=== PATIENT | female | born 1935 | race Caucasian/White ===

== ENCOUNTER 2017-10-01 14:11 | Inpatient (IN) | payer MEDICARE, OTHER ==
[2017-10-01 14:52] LABS: ANION GAP 13.7
[2017-10-01] MEDS ORDERED: Ondansetron 4 MG/2 ML SDV IV ONE (15:15)
[2017-10-01] MEDS ORDERED: Sodium Chloride 0.9% 1,000 ML IV ONE (15:15)
--- NOTE | 2017-10-01 15:22 | EDM.PDOC ---
ED HPI GENERAL MEDICAL PROBLEM - General Chief Complaint: Gastrointestinal Problem Stated Complaint: NAUSEA Time Seen by Provider: 10/01/17 15:05 Source of Information: Reports: Patient History Limitations: Reports: No Limitations - History of Present Illness INITIAL COMMENTS - FREE TEXT/NARRATIVE: This 82 yo female patient reports to the ED with nausea and a reduced appetite over the past 3 days. The patient reports she has had a history of frequent UTI' s this summer with previous treatments including Bactrim and Macrobid. The patient reports she did eat some crackers yesterday and today, but has a difficult time getting them down. The patient reports she just generally does not feel well at this time. Onset Date: 09/28/17 Duration: Constant Location: Reports: Generalized Quality: Reports: Other Severity: Moderate Improves with: Reports: None Worsens with: Reports: None Associated Symptoms: Reports: Nausea/Vomiting, Weakness - Related Data Allergies Allergy/AdvReac Type Severity Reaction Status Date / Time ciprofloxacin Allergy Intermediate Muscle Verified 10/01/17 14:16 Aches Penicillins Allergy Intermediate Rash Verified 10/01/17 14:16 atorvastatin [From Lipitor] Allergy Muscle Verified 10/01/17 14:16 Aches erythromycin base Allergy Other Verified 10/01/17 14:16 [Erythromycin Base] levofloxacin [From Levaquin] Allergy Indigestion Verified 10/01/17 14:16 dexasporin Allergy Other Uncoded 10/01/17 14:16 Home Meds: Home Meds Acetaminophen [Tylenol Extra Strength] 1,000 mg PO Q8H PRN 12/28/13 [History] Calcium Carbonate [Calcium] 600 mg PO DAILY 12/28/13 [History] Cholecalciferol (Vitamin D3) [Vitamin D] 1,000 unit PO DAILY 12/28/13 [History] Ipratropium [Atrovent 0.03% Nasal [place]] 1 spray NASBOTH DAILY 12/28/13 [History ] Metoprolol Succinate [Toprol XL] 50 mg PO DAILY 12/28/13 [History] Amiodarone [Cordarone] 200 mg PO DAILY 11/20/15 [History] Apixaban [Eliquis] 2.5 mg PO BID 11/20/15 [History] Fluticasone/Salmeterol [Advair Diskus 500-50] 1 puff INH BID 10/10/16 [History] azaTHIOprine [Imuran] 50 mg PO ASDIRECTED 11/20/15 [History] Alendronate Sodium 70 mg PO ASDIRECTED 10/01/17 [History] Levothyroxine 25 mcg PO ACBREAKFAST 10/01/17 [History] Nitrofurantoin [place]/Macrocryst [Nitrofurantoin [place]-MCR] 100 mg PO BID 10/01/17 [History] Pitavastatin [Livalo] 2 mg PO DAILY 10/01/17 [History] Trospium Chloride 20 mg PO DAILY 10/01/17 [History] buPROPion [Wellbutrin SR] 100 mg PO DAILY 10/01/17 [History] cycloSPORINE [Restasis] 2 drop EYEBOTH ASDIRECTED PRN 10/01/17 [History] Past Medical History HEENT History: Reports: Hard of Hearing, Impaired Vision, Other (See Below) Other HEENT History: wears glasses, wears aides Cardiovascular History: Reports: Afib, High Cholesterol Respiratory History: Reports: None Gastrointestinal History: Reports: Diverticulosis Genitourinary History: Reports: Urinary Incontinence, UTI, Recurrent, Other ( See Below) Other Genitourinary History: 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 OF THE 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: Musculoskeletal History: Reports: Fibromyalgia Other Musculoskeletal History: TROCHANTERIC BURSITIS Neurological History: Reports: Other (See Below) Other Neuro History: INSOMNIA Psychiatric History: Reports: Depression Endocrine/Metabolic History: Reports: Hypothyroidism Other Endocrine/Metabolic History: ELEVATED TSH Hematologic History: Reports: Other (See Below) Other Hematologic History: vasculitis Immunologic History: Reports: None Other Immunologic History: VASCULITIS Oncologic (Cancer) History: Reports: None Dermatologic History: Reports: Other (See Below) Other Dermatologic History: ACTINIC DERMATITIS; 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 - Infectious Disease History Infectious Disease History: Reports: Measles, Pertussis (Whooping Cough), Scarlet Fever Other Infectious Disease History: UNCERTAIN OF WHAT SHE MAY HAVE HAD DURING CHILDHOOD - Past Surgical History Head Surgeries/Procedures: Reports: None HEENT Surgical History: Reports: Cataract Surgery Respiratory Surgical History: Reports: None GI Surgical History: Reports: Appendectomy, Colonoscopy Female Surgical History: Reports: D&C, Tubal Ligation Oncologic Surgical History: Reports: None Social & Family History - Tobacco Use Smoking Status *Q: Never Smoker Second Hand Smoke Exposure: No - Caffeine Use Caffeine Use: Reports: Coffee, Tea Other Caffeine Use: OCCASIONAL - Recreational Drug Use Recreational Drug Use: No ED ROS GENERAL - Review of Systems Review Of Systems: ROS reveals no pertinent complaints other than HPI. ED EXAM, GI/ABD - Physical Exam Exam: See Below Exam Limited By: No Limitations General Appearance: Alert, WD/WN, Mild Distress Eyes: Bilateral: Normal Appearance, EOMI Ears: Normal External Exam, Normal Canal, Hearing Grossly Normal, Normal TMs Nose: Normal Inspection, Normal Mucosa, No Blood Throat/Mouth: Normal Inspection, Normal Lips, Normal Teeth, Normal Gums, Normal Oropharynx, Normal Voice, No Airway Compromise Head: Atraumatic, Normocephalic Neck: Normal Inspection, Supple, Non-Tender, Full Range of Motion Cardiovascular: Normal Peripheral Pulses, Regular Rate, Rhythm, No Edema, No Gallop, No JVD, No Murmur, No Rub GI/Abdominal Exam: Normal Bowel Sounds, Soft, Non-Tender, No Organomegaly, No Distention, No Abnormal Bruit, No Mass, Pelvis Stable (Female) Exam: Deferred Rectal (Female) Exam: Deferred Back Exam: Normal Inspection, Full Range of Motion, NT Extremities: Normal Inspection, Normal Range of Motion, Non-Tender, Normal Capillary Refill, No Pedal Edema Neurological: Alert, Oriented, CN II-XII Intact, Normal Cognition Psychiatric: Normal Affect, Normal Mood Skin Exam: Warm, Dry, Intact, Normal Color, No Rash Lymphatic: No Adenopathy Course - Vital Signs Last Recorded V/S: Last Vital Signs Temp 35.8 C 10/01/17 16:18 Pulse 60 10/01/17 16:18 Resp 15 10/01/17 16:18 BP 133/59 L 10/01/17 16:18 Pulse Ox 98 10/01/17 16:18 Orthostatic Blood Pressure [ 99/63 Standing] Orthostatic Blood Pressure [ 114/68 Sitting] Orthostatic Blood Pressure [ 132/70 Supine] - Orders/Labs/Meds Orders: Active Orders 24 hr Category Date Time Status CULTURE URINE [RM] Stat Lab 10/01/17 15:51 Ordered UA W/MICROSCOPIC [URIN] Stat Lab 10/01/17 14:45 Ordered Labs: Laboratory Tests 10/01/17 10/01/17 10/01/17 Range/Units 14:25 14:25 14:45 WBC 5.8 (5.0-10.0) 10^3/uL RBC 4.38 (4.2-5.4) 10^6/uL Hgb 14.1 (12.0-16.0) g/dL Hct 40.6 (37.0-47.0) % MCV 92.7 (80-100) fL MCH 32.2 (27.0-34.0) pg MCHC 34.7 (33.0-35.0) g/dL Plt Count 273 (150-450) 10^3/uL Neut % (Auto) 67.3 (42.2-75.2) % Lymph % (Auto) 17.6 L (20.5-50.1) % [place] % (Auto) 14.6 H (2-8) % Eos % (Auto) 0.2 L (1.0-3.0) % Baso % (Auto) 0.3 (0.0-1.0) % Add Manual Diff Yes Neutrophils % (Manual) 71 (42-75) % Band Neutrophils % 1 % Lymphocytes % (Manual) 16 L (20-50) % Monocytes % (Manual) 12 H (2-8) % Sodium 129 L (135-145) mmol/L Potassium 4.7 (3.6-5.0) mmol/L Chloride 97 L (101-111) mmol/L Carbon Dioxide 23.0 (21.0-31.0) mmol/L Anion Gap 13.7 BUN 18 (7-18) mg/dL Creatinine 1.5 H (0.6-1.3) mg/dL Est Cr Clr Drug Dosing 22.47 mL/min Estimated GFR (MDRD) 33 BUN/Creatinine Ratio 12.00 Glucose 94 (74-105) mg/dL Calcium 9.5 (8.4-10.2) mg/dl Total Bilirubin 1.0 (0.2-1.0) mg/dL AST 41 (10-42) IU/L ALT 36 (10-60) IU/L Alkaline Phosphatase 29 L (42-121) IU/L Total Protein 7.0 (6.7-8.2) g/dl Albumin 4.1 (3.2-5.5) g/dl Globulin 2.9 Albumin/Globulin Ratio 1.41 Urine Color Yellow (YELLOW) Urine Appearance Cloudy (CLEAR) Urine pH 7.5 (5.0-9.0) Ur Specific [place] 1.015 (1.005-1.030) Urine Protein Trace H (NEGATIVE) Urine Glucose (UA) Negative (NEGATIVE) Urine Ketones 40 H (NEGATIVE) Urine Occult Blood Negative (NEGATIVE) Urine Nitrite Negative (NEGATIVE) Urine Bilirubin Negative (NEGATIVE) Urine Urobilinogen 0.2 (0.2-1.0) mg/dL Ur Leukocyte Esterase Small H (NEGATIVE) Urine RBC 0-5 /HPF Urine WBC 5-10 H (0-5/HPF) /HPF Ur Epithelial Cells Few /HPF Amorphous Sediment Many H (0/HPF) /HPF Urine Bacteria Rare (0-FEW/HPF) /HPF Meds: Medications Discontinued Medications Generic Name Dose Route Start Last Admin Trade Name Freq PRN Reason Stop Dose Admin Sodium Chloride 1,000 mls @ 999 mls/hr 10/01/17 15:15 10/01/17 15:31 Normal Saline IV 10/01/17 16:15 999 mls/hr .BOLUS ONE Administration Ondansetron HCl 4 mg 10/01/17 15:15 10/01/17 15:33 Zofran IV 10/01/17 15:16 4 mg ONETIME ONE Administration Departure - Departure Time of Disposition: 16:51 Disposition: Admitted As Inpatient 65 Condition: Fair Clinical Impression: Weakness UTI (urinary tract infection) Qualifiers: Urinary tract infection type: site unspecified Hematuria presence: without hematuria Qualified Code(s): N39.0 - Urinary tract infection, site not specified - Discharge Information *PRESCRIPTION DRUG MONITORING PROGRAM REVIEWED*: Not Applicable *COPY OF PRESCRIPTION DRUG MONITORING REPORT IN PATIENT YESSICA: Not Applicable Care Plan Goals: Discussed the examination, lab and history results with Dr. Masterson. Dr. Masterson accepted the patient for observation and further evaluation/management at [facility]. - My Orders Last 24 Hours: My Active Orders 10/01/17 14:45 UA W/MICROSCOPIC [URIN] Stat 10/01/17 15:51 CULTURE URINE [RM] Stat - Assessment/Plan Last 24 Hours: My Active Orders 10/01/17 14:45 UA W/MICROSCOPIC [URIN] Stat 10/01/17 15:51 CULTURE URINE [RM] Stat
[2017-10-01] MEDS ORDERED: Ondansetron 4 MG/2 ML SDV IVPUSH PRN ×2 (17:10→17:36)
[2017-10-01] MEDS ORDERED: Acetaminophen 325 MG Tab PO PRN ×2 (17:10→17:36)
[2017-10-01] MEDS ORDERED: cefTRIAXone 1 GM Vial IVPUSH SCH (17:15)
[2017-10-01] MEDS ORDERED: Acetaminophen 500 MG Tab PO PRN ×2 (17:15→17:36)
[2017-10-01] MEDS ORDERED: Sodium Chloride 0.9% 1,000 ML IV SCH (17:15)
--- NOTE | 2017-10-01 17:24 | PCM.HP ---
H&P History of Present Illness - General Date of Service: 10/01/17 Admit Problem/Dx: Admission Diagnosis/Problem Admission Diagnosis/Problem Acute renal failure syndrome Source of Information: Patient - History of Present Illness Initial Comments - Free Text/Narative: The patient is an 82 year old female with medical history of hypothyroidism, chronic atrial fibrillation, hypertension, and chronic anticoagulation. The patient began to experience symptoms of urinary tract infection about 5 days ago. She was seen by her primary carepractitioner and given a prescription for nitrofurantoin. Despite using that medication she continues to have frequency or micturition generalized body malaise and weakness. The patient had urine cultures which came back suggesting that it was resistant to nitrofurantoin. Patient was started on Bactrim. Over the past 3 days has symptoms has worsened. She has been experiencing nausea. She vomited yesterday evening. Her appetite has been poor and she has not been eating well. Has not had any documented fever but experiences intermittent chills. Denies having chest pain or shortness of breath. Indicates that she has generalized body aches and feels extremely weak. - Related Data Allergies/Adverse Reactions: Allergies Allergy/AdvReac Type Severity Reaction Status Date / Time ciprofloxacin Allergy Intermediate Muscle Verified 10/01/17 14:16 Aches Penicillins Allergy Intermediate Rash Verified 10/01/17 14:16 atorvastatin [From Lipitor] Allergy Muscle Verified 10/01/17 14:16 Aches erythromycin base Allergy Other Verified 10/01/17 14:16 [Erythromycin Base] levofloxacin [From Levaquin] Allergy Indigestion Verified 10/01/17 14:16 dexasporin Allergy Other Uncoded 10/01/17 14:16 Home Medications: Home Meds Acetaminophen [Tylenol Extra Strength] 1,000 mg PO Q8H PRN 12/28/13 [History] Calcium Carbonate [Calcium] 600 mg PO DAILY 12/28/13 [History] Cholecalciferol (Vitamin D3) [Vitamin D] 1,000 unit PO DAILY 12/28/13 [History] Ipratropium [Atrovent 0.03% Nasal [place]] 1 spray NASBOTH DAILY 12/28/13 [History ] Metoprolol Succinate [Toprol XL] 50 mg PO DAILY 12/28/13 [History] Amiodarone [Cordarone] 200 mg PO DAILY 11/20/15 [History] Apixaban [Eliquis] 2.5 mg PO BID 11/20/15 [History] Fluticasone/Salmeterol [Advair Diskus 500-50] 1 puff INH BID 11/20/15 [History] azaTHIOprine [Imuran] 50 mg PO ASDIRECTED 11/20/15 [History] Alendronate Sodium 70 mg PO ASDIRECTED 10/01/17 [History] Levothyroxine 25 mcg PO ACBREAKFAST 10/01/17 [History] Nitrofurantoin [place]/Macrocryst [Nitrofurantoin [place]-MCR] 100 mg PO BID 10/01/17 [History] Pitavastatin [Livalo] 2 mg PO DAILY 10/01/17 [History] Trospium Chloride 20 mg PO DAILY 10/01/17 [History] buPROPion [Wellbutrin SR] 100 mg PO DAILY 10/01/17 [History] cycloSPORINE [Restasis] 2 drop EYEBOTH ASDIRECTED PRN 10/01/17 [History] Past Medical History HEENT History: Reports: Hard of Hearing, Impaired Vision, Other (See Below) Other HEENT History: wears glasses, wears aides Cardiovascular History: Reports: Afib, High Cholesterol Respiratory History: Reports: None Gastrointestinal History: Reports: Diverticulosis Genitourinary History: Reports: Urinary Incontinence, UTI, Recurrent, Other ( See Below) Other Genitourinary History: 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 OF THE 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: Musculoskeletal History: Reports: Fibromyalgia Other Musculoskeletal History: TROCHANTERIC BURSITIS Neurological History: Reports: Other (See Below) Other Neuro History: INSOMNIA Psychiatric History: Reports: Depression Endocrine/Metabolic History: Reports: Hypothyroidism Other Endocrine/Metabolic History: ELEVATED TSH Hematologic History: Reports: Other (See Below) Other Hematologic History: vasculitis Immunologic History: Reports: None Other Immunologic History: VASCULITIS Oncologic (Cancer) History: Reports: None Dermatologic History: Reports: Other (See Below) Other Dermatologic History: ACTINIC DERMATITIS; 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 - Infectious Disease History Infectious Disease History: Reports: Measles, Pertussis (Whooping Cough), Scarlet Fever Other Infectious Disease History: UNCERTAIN OF WHAT SHE MAY HAVE HAD DURING CHILDHOOD - Past Surgical History Head Surgeries/Procedures: Reports: None HEENT Surgical History: Reports: Cataract Surgery Respiratory Surgical History: Reports: None GI Surgical History: Reports: Appendectomy, Colonoscopy Female Surgical History: Reports: D&C, Tubal Ligation Oncologic Surgical History: Reports: None Social & Family History - Tobacco Use Smoking Status *Q: Never Smoker Second Hand Smoke Exposure: No - Caffeine Use Caffeine Use: Reports: Coffee, Tea Other Caffeine Use: OCCASIONAL - Recreational Drug Use Recreational Drug Use: No H&P Review of Systems - Review of Systems: Review Of Systems: See Below General: Reports: Malaise, Weakness HEENT: Reports: No Symptoms Pulmonary: Reports: No Symptoms Cardiovascular: Reports: Lightheadedness Gastrointestinal: Reports: No Symptoms Genitourinary: Reports: No Symptoms, Urgency Psychiatric: Reports: No Symptoms Neurological: Reports: No Symptoms Exam - Exam Exam: See Below - Vital Signs Vital Signs: Last Vital Signs Temp 35.8 C 10/01/17 16:18 Pulse 60 10/01/17 16:18 Resp 15 10/01/17 16:18 BP 133/59 L 10/01/17 16:18 Pulse Ox 98 10/01/17 16:18 Orthostatic Blood Pressure [ 99/63 Standing] Orthostatic Blood Pressure [ 114/68 Sitting] Orthostatic Blood Pressure [ 132/70 Supine] Weight: 56.699 kg - Exam General: Alert, Oriented, Cooperative HEENT: PERRLA, Hearing Intact, Mucosa Moist & [place], Nares Patent, Normal Nasal Septum, Posterior Pharynx Clear, Conjunctiva Clear, EOMI, EACs Clear, TMs Clear Neck: Supple, Trachea Midline, 2 Lungs: Clear to Auscultation Cardiovascular: Regular Rate GI/Abdominal Exam: Normal Bowel Sounds, Soft, Non-Tender Extremities: Normal Inspection Psychiatric: Alert - Patient Data Lab Results Last 24 hrs: Laboratory Results - last 24 hr 10/01/17 10/01/17 10/01/17 Range/Units 14:25 14:25 14:45 WBC 5.8 (5.0-10.0) 10^3/uL RBC 4.38 (4.2-5.4) 10^6/uL Hgb 14.1 (12.0-16.0) g/dL Hct 40.6 (37.0-47.0) % MCV 92.7 (80-100) fL MCH 32.2 (27.0-34.0) pg MCHC 34.7 (33.0-35.0) g/dL Plt Count 273 (150-450) 10^3/uL Neut % (Auto) 67.3 (42.2-75.2) % Lymph % (Auto) 17.6 L (20.5-50.1) % [place] % (Auto) 14.6 H (2-8) % Eos % (Auto) 0.2 L (1.0-3.0) % Baso % (Auto) 0.3 (0.0-1.0) % Add Manual Diff Yes Neutrophils % (Manual) 71 (42-75) % Band Neutrophils % 1 % Lymphocytes % (Manual) 16 L (20-50) % Monocytes % (Manual) 12 H (2-8) % Sodium 129 L (135-145) mmol/L Potassium 4.7 (3.6-5.0) mmol/L Chloride 97 L (101-111) mmol/L Carbon Dioxide 23.0 (21.0-31.0) mmol/L Anion Gap 13.7 BUN 18 (7-18) mg/dL Creatinine 1.5 H (0.6-1.3) mg/dL Est Cr Clr Drug Dosing 22.47 mL/min Estimated GFR (MDRD) 33 BUN/Creatinine Ratio 12.00 Glucose 94 (74-105) mg/dL Calcium 9.5 (8.4-10.2) mg/dl Total Bilirubin 1.0 (0.2-1.0) mg/dL AST 41 (10-42) IU/L ALT 36 (10-60) IU/L Alkaline Phosphatase 29 L (42-121) IU/L Total Protein 7.0 (6.7-8.2) g/dl Albumin 4.1 (3.2-5.5) g/dl Globulin 2.9 Albumin/Globulin Ratio 1.41 Urine Color Yellow (YELLOW) Urine Appearance Cloudy (CLEAR) Urine pH 7.5 (5.0-9.0) Ur Specific [place] 1.015 (1.005-1.030) Urine Protein Trace H (NEGATIVE) Urine Glucose (UA) Negative (NEGATIVE) Urine Ketones 40 H (NEGATIVE) Urine Occult Blood Negative (NEGATIVE) Urine Nitrite Negative (NEGATIVE) Urine Bilirubin Negative (NEGATIVE) Urine Urobilinogen 0.2 (0.2-1.0) mg/dL Ur Leukocyte Esterase Small H (NEGATIVE) Urine RBC 0-5 /HPF Urine WBC 5-10 H (0-5/HPF) /HPF Ur Epithelial Cells Few /HPF Amorphous Sediment Many H (0/HPF) /HPF Urine Bacteria Rare (0-FEW/HPF) /HPF Result Diagrams: 10/01/17 14:25 10/01/17 14:25 Problem List Initiated/Reviewed/Updated: Yes Orders Last 24hrs: Active Orders 24 hr Category Date Time Status Patient Status [ADT] Routine ADT 10/01/17 17:10 Active Intake and Output [RC] QSHIFT Care 10/01/17 17:12 Active Oxygen Therapy [RC] PRN Care 10/01/17 17:10 Active Up ad Pam [RC] ASDIRECTED Care 10/01/17 17:10 Active VTE/DVT Education [RC] PER UNIT ROUTINE Care 10/01/17 17:10 Active Vital Signs [RC] Q4H Care 10/01/17 17:10 Active OT Evaluation and Treatment [CONS] Routine Cons 10/01/17 17:10 Active PT Evaluation and Treatment [CONS] Routine Cons 10/01/17 17:10 Active Regular Diet [DIET] Diet 10/01/17 Dinner Active BASIC METABOLIC PANEL,BMP [CHEM] AM Lab 10/02/17 05:11 Ordered CBC WITH AUTO DIFF [HEME] AM Lab 10/02/17 05:11 Ordered CULTURE URINE [RM] Stat Lab 10/01/17 14:45 Received TROPONIN I [CHEM] Q3H Lab 10/01/17 17:10 Ordered TROPONIN I [CHEM] Q3H Lab 10/01/17 20:10 Ordered TROPONIN I [CHEM] Q3H Lab 10/01/17 23:10 Ordered UA W/MICROSCOPIC [URIN] Stat Lab 10/01/17 14:45 Ordered Acetaminophen [Tylenol Extra Strength] Med 10/01/17 17:15 Ordered 1,000 mg PO Q8H PRN Acetaminophen [Tylenol] Med 10/01/17 17:10 Ordered 650 mg PO Q4H PRN Apixaban [Eliquis] Med 10/01/17 21:00 Ordered 2.5 mg PO BID Calcium Carbonate Med 10/02/17 09:00 Ordered 600 mg PO DAILY Cholecalciferol (Vitamin D3) [Vitamin D3] Med 10/02/17 09:00 Ordered 1,000 unit PO DAILY Ipratropium [Atrovent 0.03% Nasal [place]] Med 10/02/17 09:00 Ordered 1 spray NASBOTH DAILY Levothyroxine Med 10/02/17 06:00 Ordered 25 mcg PO ACBREAKFAST Metoprolol Succinate [Toprol XL] Med 10/02/17 09:00 Ordered 50 mg PO DAILY Ondansetron [Zofran] Med 10/01/17 17:10 Ordered 4 mg IVPUSH Q6H PRN Pitavastatin [Livalo] Med 10/02/17 09:00 Ordered 2 mg PO DAILY Sodium Chloride 0.9% [Normal Saline] 1,000 ml Med 10/01/17 17:15 Ordered IV ASDIRECTED Trospium Chloride [Trospium Chloride] Med 10/02/17 09:00 Ordered 20 mg PO DAILY buPROPion [Wellbutrin SR] Med 10/02/17 09:00 Ordered 100 mg PO DAILY cefTRIAXone [Rocephin] Med 10/01/17 17:15 Ordered 1 gm IVPUSH Q24H cycloSPORINE [Restasis] Med 10/01/17 17:15 Ordered DOSE each EYEBOTH ASDIRECTED PRN Resuscitation Status Routine Resus Stat 10/01/17 17:10 Ordered Medication Orders Acetaminophen (Tylenol) 650 mg PO Q4H PRN PRN Reason: Pain (Mild 1-3)/fever Acetaminophen (Tylenol Extra Strength) 1,000 mg PO Q8H PRN PRN Reason: Pain Ceftriaxone Sodium (Rocephin) 1 gm IVPUSH Q24H [facility]OEBE Cyclosporine (Restasis) each EYEBOTH ASDIRECTED PRN PRN Reason: Dry Eyes Sodium Chloride (Normal Saline) 1,000 mls @ 125 mls/hr IV ASDIRECTED [facility] Levothyroxine Sodium (Levothyroxine) 25 mcg PO ACBREAKFAST [place] Metoprolol Succinate (Toprol Xl) 50 mg PO DAILY [facility] Non-Formulary Medication (Apixaban [Eliquis]) 2.5 mg PO BID [facility] Non-Formulary Medication (Bupropion [Wellbutrin Sr]) 100 mg PO DAILY [facility] Non-Formulary Medication (Calcium Carbonate) 600 mg PO DAILY [facility] Non-Formulary Medication (Cholecalciferol (Vitamin D3) [Vitamin D3]) 1,000 unit PO DAILY [facility] Non-Formulary Medication (Ipratropium [Atrovent 0.03% Nasal [place]]) 1 spray NASBOTH DAILY [facility] Non-Formulary Medication (Pitavastatin [Livalo]) 2 mg PO DAILY [facility] Non-Formulary Medication (Trospium Chloride [Trospium Chloride]) 20 mg PO DAILY [facility] Ondansetron HCl (Zofran) 4 mg IVPUSH Q6H PRN PRN Reason: Nausea/Vomiting Assessment/Plan Comment:: #. Hyponatremia Serum sodium is down 129 This is likely due to gastrointestinal loss. The patient has had vomiting. Also has been expressing nausea which can result in SIADH. #. Acute renal failure This is probably induced by the use of Bactrim. Has not been eating and drinking well has might also be intravascularly depleted. #. Atrial fibrillation Patient has been on chronic anticoagulation. Plan to has also been on amiodarone #. Chronic anticoagulation On apixaban #Hypothyroidism On levothyroxin. #. Dyslipidemia Has been on statins Plan: Admit patient to medical floor Start patient on intravenous normal saline going at 1 25 mL an hour Obtain urine cultures Empiric antibiotics intravenous ceftriaxone Anti-medic protocol Restart anticoagulants Restart levothyroxine. Obtain repeat basic metabolic panel Repeat complete blood count.
[2017-10-01] MEDS: cefTRIAXone 1 GM Vial IVPUSH SCH (18:25)
[2017-10-01] MEDS ORDERED: Non-Formulary Medication 1 Each (Apixaban [Eliquis] 2.5 MG) PO SCH (21:00)
[2017-10-01] MEDS ORDERED: Non-Formulary Medication 1 Each INH SCH (21:15)
[2017-10-01] MEDS: Sodium Chloride 0.9% 1,000 ML IV SCH (21:31)
[2017-10-01] MEDS: cycloSPORINE Ophth Drops U/D Box of 30 EYEBOTH SCH (21:36)
[2017-10-01] MEDS: CRANBERRY 450 MG PO SCH (22:26)
[2017-10-01] MEDS: ADVAIR INH SCH (22:26)
[2017-10-02] MEDS: Levothyroxine 25 MCG Tab PO SCH (05:26)
[2017-10-02] MEDS: Sodium Chloride 0.9% 1,000 ML IV SCH ×3 (05:29→21:40)
[2017-10-02] MEDS ORDERED: Levothyroxine 25 MCG Tab PO SCH (06:00)
[2017-10-02 07:12] LABS: ANION GAP 10.8
[2017-10-02] MEDS: Metoprolol Succinate 50 MG Tab.ER PO SCH (08:56)
[2017-10-02] MEDS: Calcium Carbonate 500 MG Tab.Chew PO SCH (08:56)
[2017-10-02] MEDS: ADVAIR INH SCH ×2 (08:57→17:08)
[2017-10-02] MEDS: CRANBERRY 450 MG PO SCH ×2 (08:59→21:28)
[2017-10-02] MEDS: CHOLECALCIFEROL PO SCH (08:59)
[2017-10-02] MEDS: PITAVASTATIN 2 MG PO SCH (08:59)
[2017-10-02] MEDS ORDERED: Non-Formulary Medication 1 Each (Calcium Carbonate 600 MG) PO SCH (09:00)
[2017-10-02] MEDS ORDERED: Non-Formulary Medication 1 Each (Bupropion [Wellbutrin Sr] 100 MG) PO SCH ×2 (09:00)
[2017-10-02] MEDS ORDERED: PITAVASTATIN 2 MG PO SCH (09:00)
[2017-10-02] MEDS ORDERED: TROSPIUM CHLORIDE 20 MG PO SCH ×2 (09:00)
[2017-10-02] MEDS ORDERED: Non-Formulary Medication 1 Each (Cholecalciferol (Vitamin D3) [Vitamin D3] 1,000 UNIT) PO SCH (09:00)
[2017-10-02] MEDS ORDERED: Metoprolol Succinate 50 MG Tab.ER PO SCH (09:00)
[2017-10-02] MEDS ORDERED: IPRATROPIUM NASBOTH SCH ×2 (09:00)
[2017-10-02] MEDS: cycloSPORINE Ophth Drops U/D Box of 30 EYEBOTH SCH ×2 (09:01→21:26)
--- NOTE | 2017-10-02 12:57 | CT ---
CLINICAL HISTORY: 82-year-old 98 pound female with recent atrial fibrillation and now episode of "uns teadiness". No known trauma. SCAN TECHNIQUE: Volume acquisition of data from an unenhanced CT scan of the head and brain obtained while the patient was lying supine on the Siemens multislice scanner [place], [place]. All data archived in the PACS system for storage, reformatting axial/sagittal/chiu l planes and study. INTERPRETATION: Hyperostosis frontalis interna. Uniformly thick bony calvarium without sign of fractu re, underlying brain contusion or abnormal extracerebral/intracranial epidural or subdural hematoma. Subtle microvascular ischemic focus posterior limb external capsule deep in the left cerebral hemisph ere (no edema or mass effect on the adjacent sulci). Symmetric age-appropriate atrophy. Subtle ischem ic changes parietal convexity, bilaterally. No supratentorial or posterior fossa mass lesion. No hydrocephalus. No sign of acute intracerebral/reticular/subarachnoid bleed. Cerebellum and brainstem unremarkable and unchanged except for technique since MRI exam . Subtle mucoperiosteal inflammation left maxillary antrum. Ethmoid, right maxillary, sphenoid and mast oid sinuses clear. CONCLUSION: Microvascular ischemic changes and chronic age-appropriate atrophy. Chronic left maxillar y sinusitis. No new intracranial mass, hydrocephalus or bleed. Normal cerebellum.
--- NOTE | 2017-10-02 13:24 | PCM.PN ---
- General Info Date of Service: 10/02/17 Admission Dx/Problem (Free Text): Admission Diagnosis/Problem Admission Diagnosis/Problem Acute renal failure syndrome Subjective Update: The patient is an 82 year old female with medical history of hypothyroidism, chronic atrial fibrillation, hypertension, and chronic anticoagulation. The patient began to experience symptoms of urinary tract infection about 5 days ago. She was seen by her primary carepractitioner and given a prescription for nitrofurantoin. Despite using that medication she continues to have frequency or micturition generalized body malaise and weakness. The patient had urine cultures which came back suggesting that it was resistant to nitrofurantoin. Patient was started on Bactrim. Over the past 3 days has symptoms has worsened. She has been experiencing nausea. She vomited yesterday evening. Her appetite has been poor and she has not been eating well. Has not had any documented fever but experiences intermittent chills. Indicates that she has generalized body aches and feels extremely weak. She was admitted for JOE. Today she sen at bedside accompanied by daughter. Patient reports general malaise, weakness, and unsteady gait. She notes dizziness without vertigo. Daughter said she is been having this for sometime now but got worse over the last past week. She has no headache, neck pain. She has not have fever or chils. Urinary symptoms appears to have resolve. Nausea and vomiting improved but her appetite is still poor. Patient is able to walk but is unsteady. Ct head done was negative for acute finding. Functional Status: Reports: Pain Controlled - Review of Systems General: Reports: No Symptoms HEENT: Reports: No Symptoms Pulmonary: Reports: No Symptoms Cardiovascular: Reports: No Symptoms Gastrointestinal: Reports: No Symptoms Genitourinary: Reports: No Symptoms Musculoskeletal: Reports: Other (general malaise) Skin: Reports: No Symptoms Neurological: Reports: Gait Disturbance Psychiatric: Reports: No Symptoms - Patient Data Vitals - Most Recent: Last Vital Signs Temp 97.6 F 10/02/17 11:59 Pulse 66 10/02/17 11:59 Resp 20 10/02/17 11:59 BP 121/64 10/02/17 11:59 Pulse Ox 98 10/02/17 11:59 Orthostatic Blood Pressure [ 99/63 Standing] Orthostatic Blood Pressure [ 114/68 Sitting] Orthostatic Blood Pressure [ 132/70 Supine] Weight - Most Recent: 121 lb 9.6 oz I&O - Last 24 Hours: Intake & Output 10/01/17 10/02/17 10/02/17 22:59 06:59 14:59 Intake Total 1009 1288 Output Total 200 1400 700 Balance 809 112 700 Lab Results Last 24 Hours: Laboratory Results - last 24 hr 10/01/17 10/01/17 10/01/17 Range/Units 14:25 14:25 14:45 WBC 5.8 (5.0-10.0) 10^3/uL RBC 4.38 (4.2-5.4) 10^6/uL Hgb 14.1 (12.0-16.0) g/dL Hct 40.6 (37.0-47.0) % MCV 92.7 (80-100) fL MCH 32.2 (27.0-34.0) pg MCHC 34.7 (33.0-35.0) g/dL Plt Count 273 (150-450) 10^3/uL Neut % (Auto) 67.3 (42.2-75.2) % Lymph % (Auto) 17.6 L (20.5-50.1) % [place] % (Auto) 14.6 H (2-8) % Eos % (Auto) 0.2 L (1.0-3.0) % Baso % (Auto) 0.3 (0.0-1.0) % Add Manual Diff Yes Neutrophils % (Manual) 71 (42-75) % Band Neutrophils % 1 % Lymphocytes % (Manual) 16 L (20-50) % Monocytes % (Manual) 12 H (2-8) % Basophils % (Manual) Platelet Estimate Giant Platelets Acanthocytes (Spur) Sodium 129 L (135-145) mmol/L Potassium 4.7 (3.6-5.0) mmol/L Chloride 97 L (101-111) mmol/L Carbon Dioxide 23.0 (21.0-31.0) mmol/L Anion Gap 13.7 BUN 18 (7-18) mg/dL Creatinine 1.5 H (0.6-1.3) mg/dL Est Cr Clr Drug Dosing 22.47 mL/min Estimated GFR (MDRD) 33 BUN/Creatinine Ratio 12.00 Glucose 94 (74-105) mg/dL Calcium 9.5 (8.4-10.2) mg/dl Total Bilirubin 1.0 (0.2-1.0) mg/dL AST 41 (10-42) IU/L ALT 36 (10-60) IU/L Alkaline Phosphatase 29 L (42-121) IU/L Troponin I (0.00-0.02) ng/ml Total Protein 7.0 (6.7-8.2) g/dl Albumin 4.1 (3.2-5.5) g/dl Globulin 2.9 Albumin/Globulin Ratio 1.41 Urine Color Yellow (YELLOW) Urine Appearance Cloudy (CLEAR) Urine pH 7.5 (5.0-9.0) Ur Specific [place] 1.015 (1.005-1.030) Urine Protein Trace H (NEGATIVE) Urine Glucose (UA) Negative (NEGATIVE) Urine Ketones 40 H (NEGATIVE) Urine Occult Blood Negative (NEGATIVE) Urine Nitrite Negative (NEGATIVE) Urine Bilirubin Negative (NEGATIVE) Urine Urobilinogen 0.2 (0.2-1.0) mg/dL Ur Leukocyte Esterase Small H (NEGATIVE) Urine RBC 0-5 /HPF Urine WBC 5-10 H (0-5/HPF) /HPF Ur Epithelial Cells Few /HPF Amorphous Sediment Many H (0/HPF) /HPF Urine Bacteria Rare (0-FEW/HPF) /HPF 10/01/17 10/01/17 10/01/17 Range/Units 17:40 20:30 23:35 WBC (5.0-10.0) 10^3/uL RBC (4.2-5.4) 10^6/uL Hgb (12.0-16.0) g/dL Hct (37.0-47.0) % MCV (80-100) fL MCH (27.0-34.0) pg MCHC (33.0-35.0) g/dL Plt Count (150-450) 10^3/uL Neut % (Auto) (42.2-75.2) % Lymph % (Auto) (20.5-50.1) % [place] % (Auto) (2-8) % Eos % (Auto) (1.0-3.0) % Baso % (Auto) (0.0-1.0) % Add Manual Diff Neutrophils % (Manual) (42-75) % Band Neutrophils % % Lymphocytes % (Manual) (20-50) % Monocytes % (Manual) (2-8) % Basophils % (Manual) Platelet Estimate Giant Platelets Acanthocytes (Spur) Sodium (135-145) mmol/L Potassium (3.6-5.0) mmol/L Chloride (101-111) mmol/L Carbon Dioxide (21.0-31.0) mmol/L Anion Gap BUN (7-18) mg/dL Creatinine (0.6-1.3) mg/dL Est Cr Clr Drug Dosing mL/min Estimated GFR (MDRD) BUN/Creatinine Ratio Glucose (74-105) mg/dL Calcium (8.4-10.2) mg/dl Total Bilirubin (0.2-1.0) mg/dL AST (10-42) IU/L ALT (10-60) IU/L Alkaline Phosphatase (42-121) IU/L Troponin I < 0.02 < 0.02 < 0.02 (0.00-0.02) ng/ml Total Protein (6.7-8.2) g/dl Albumin (3.2-5.5) g/dl Globulin Albumin/Globulin Ratio Urine Color (YELLOW) Urine Appearance (CLEAR) Urine pH (5.0-9.0) Ur Specific [place] (1.005-1.030) Urine Protein (NEGATIVE) Urine Glucose (UA) (NEGATIVE) Urine Ketones (NEGATIVE) Urine Occult Blood (NEGATIVE) Urine Nitrite (NEGATIVE) Urine Bilirubin (NEGATIVE) Urine Urobilinogen (0.2-1.0) mg/dL Ur Leukocyte Esterase (NEGATIVE) Urine RBC /HPF Urine WBC (0-5/HPF) /HPF Ur Epithelial Cells /HPF Amorphous Sediment (0/HPF) /HPF Urine Bacteria (0-FEW/HPF) /HPF 10/02/17 10/02/17 Range/Units 06:20 06:20 WBC 4.5 L (5.0-10.0) 10^3/uL RBC 4.05 L (4.2-5.4) 10^6/uL Hgb 13.1 (12.0-16.0) g/dL Hct 38.6 (37.0-47.0) % MCV 95.3 (80-100) fL MCH 32.3 (27.0-34.0) pg MCHC 33.9 (33.0-35.0) g/dL Plt Count 255 (150-450) 10^3/uL Neut % (Auto) 67.6 (42.2-75.2) % Lymph % (Auto) 19.7 L (20.5-50.1) % [place] % (Auto) 12.3 H (2-8) % Eos % (Auto) 0.2 L (1.0-3.0) % Baso % (Auto) 0.2 (0.0-1.0) % Add Manual Diff Yes Neutrophils % (Manual) 71 (42-75) % Band Neutrophils % 1 % Lymphocytes % (Manual) 19 L (20-50) % Monocytes % (Manual) 8 (2-8) % Basophils % (Manual) 1 Platelet Estimate Adequate Giant Platelets Few Acanthocytes (Spur) 1+ slight Sodium 135 (135-145) mmol/L Potassium 4.8 (3.6-5.0) mmol/L Chloride 108 (101-111) mmol/L Carbon Dioxide 21.0 (21.0-31.0) mmol/L Anion Gap 10.8 BUN 14 (7-18) mg/dL Creatinine 1.1 (0.6-1.3) mg/dL Est Cr Clr Drug Dosing 30.65 mL/min Estimated GFR (MDRD) 47 BUN/Creatinine Ratio Glucose 80 (74-105) mg/dL Calcium 8.4 (8.4-10.2) mg/dl Total Bilirubin (0.2-1.0) mg/dL AST (10-42) IU/L ALT (10-60) IU/L Alkaline Phosphatase (42-121) IU/L Troponin I (0.00-0.02) ng/ml Total Protein (6.7-8.2) g/dl Albumin (3.2-5.5) g/dl Globulin Albumin/Globulin Ratio Urine Color (YELLOW) Urine Appearance (CLEAR) Urine pH (5.0-9.0) Ur Specific [place] (1.005-1.030) Urine Protein (NEGATIVE) Urine Glucose (UA) (NEGATIVE) Urine Ketones (NEGATIVE) Urine Occult Blood (NEGATIVE) Urine Nitrite (NEGATIVE) Urine Bilirubin (NEGATIVE) Urine Urobilinogen (0.2-1.0) mg/dL Ur Leukocyte Esterase (NEGATIVE) Urine RBC /HPF Urine WBC (0-5/HPF) /HPF Ur Epithelial Cells /HPF Amorphous Sediment (0/HPF) /HPF Urine Bacteria (0-FEW/HPF) /HPF Naseem Results Last 24 Hours: Microbiology 10/01/17 14:45 Urine Culture - Preliminary Urine, Voided Med Orders - Current: Current Medications Acetaminophen (Tylenol) 650 mg PO Q4H PRN PRN Reason: Pain (Mild 1-3)/fever Acetaminophen (Tylenol Extra Strength) 1,000 mg PO Q8H PRN PRN Reason: Pain Calcium Carbonate/Glycine (Tums) 500 mg PO DAILY [facility] Last Admin: 10/02/17 08:56 Dose: 500 mg Ceftriaxone Sodium (Rocephin) 1 gm IVPUSH Q24H [facility] Last Admin: 10/01/17 18:25 Dose: 1 gm Cyclosporine (Restasis) 0 each EYEBOTH BID [facility] Last Admin: 10/02/17 09:01 Dose: 1 drop Sodium Chloride (Normal Saline) 1,000 mls @ 125 mls/hr IV ASDIRECTED [facility] Last Admin: 10/02/17 05:29 Dose: 125 mls/hr Levothyroxine Sodium (Levothyroxine) 25 mcg PO ACBREAKFAST [facility] Last Admin: 10/02/17 05:26 Dose: 25 mcg Metoprolol Succinate (Toprol Xl) 50 mg PO DAILY [facility] Last Admin: 10/02/17 08:56 Dose: 50 mg (Apixaban [Eliquis] (2.5 Mg)*Ptom*) 2.5 mg PO BID [facility] Last Admin: 10/02/17 08:58 Dose: 2.5 mg (Pitavastatin [ Livalo] 2 Mg)*Pt Own Med* 2 mg PO DAILY [facility] Last Admin: 10/02/17 08:59 Dose: 2 mg Cranberry 450mgPt (Own) 1 each PO BID [facility] Last Admin: 10/02/17 08:59 Dose: 1 each Advair Diskus 250/50 (*Pt Own Med*) 0 each INH BIDRT [facility] Last Admin: 10/02/17 08:57 Dose: 1 each Ondansetron HCl (Zofran) 4 mg IVPUSH Q6H PRN PRN Reason: Nausea/Vomiting Cholecalciferol 1000 (Iu Tab *Pt Own Med*) 1,000 each PO DAILY [facility] Last Admin: 10/02/17 08:59 Dose: 1,000 each Discontinued Medications Acetaminophen (Tylenol) 650 mg PO Q4H PRN PRN Reason: Pain (Mild 1-3)/fever Acetaminophen (Tylenol Extra Strength) 1,000 mg PO Q8H PRN PRN Reason: Pain Ceftriaxone Sodium (Rocephin) 1 gm IVPUSH Q24H [facility] Sodium Chloride (Normal Saline) 1,000 mls @ 999 mls/hr IV .BOLUS ONE Stop: 10/01/17 16:15 Last Admin: 10/01/17 15:31 Dose: 999 mls/hr Sodium Chloride (Normal Saline) 1,000 mls @ 125 mls/hr IV ASDIRECTED [facility] Levothyroxine Sodium (Levothyroxine) 25 mcg PO ACBREAKFAST [facility] Metoprolol Succinate (Toprol Xl) 50 mg PO DAILY [facility] Non-Formulary Medication (Apixaban [Eliquis]) 2.5 mg PO BID [facility] Non-Formulary Medication (Bupropion [Wellbutrin Sr]) 100 mg PO DAILY [facility] Non-Formulary Medication (Calcium Carbonate) 600 mg PO DAILY [facility] Non-Formulary Medication (Cholecalciferol (Vitamin D3) [Vitamin D3]) 1,000 unit PO DAILY [facility] Non-Formulary Medication (Ipratropium [Atrovent 0.03% Nasal [place]]) 1 spray NASBOTH DAILY [facility] Non-Formulary Medication (Pitavastatin [Livalo]) 2 mg PO DAILY [facility] Non-Formulary Medication (Trospium Chloride [Trospium Chloride]) 20 mg PO DAILY [facility] Non-Formulary Medication (Bupropion [Wellbutrin Sr]) 100 mg PO DAILY [facility] Non-Formulary Medication (Ipratropium [Atrovent 0.03% Nasal [place]]) 1 spray NASBOTH DAILY [facility] Non-Formulary Medication (Trospium Chloride [Trospium Chloride]) 20 mg PO DAILY [facility] Non-Formulary Medication (Nf Drug) 1 each INH BID [facility] Last Admin: 10/02/17 00:41 Dose: Not Given Ondansetron HCl (Zofran) 4 mg IV ONETIME ONE Stop: 10/01/17 15:16 Last Admin: 10/01/17 15:33 Dose: 4 mg Ondansetron HCl (Zofran) 4 mg IVPUSH Q6H PRN PRN Reason: Nausea/Vomiting - Exam Quality Assessment: DVT Prophylaxis General: Alert, Oriented HEENT: Pupils Equal, Pupils Reactive, EOMI, Mucous Membr. Moist/[place] Neck: Supple Lungs: Clear to Auscultation, Normal Respiratory Effort Cardiovascular: Regular Rate, Regular Rhythm GI/Abdominal Exam: Normal Bowel Sounds, Soft, Non-Tender, No Organomegaly, No Distention, No Abnormal Bruit, No Mass, Pelvis Stable (Female) Exam: Normal External Exam, Normal Speculum Exam, Normal Bimanual Exam Back Exam: Normal Inspection, Full Range of Motion Extremities: Normal Inspection, Normal Range of Motion, Non-Tender, No Pedal Edema, Normal Capillary Refill Skin: Warm, Dry, Intact Wound/Incisions: Other (none) Neurological: No New Focal Deficit, Other (unsteady balance) Psy/Mental Status: Alert, Normal Affect, Normal Mood - Problem List & Annotations (1) Unsteady gait SNOMED Code(s): 76461042, [id number] Code(s): R26.81 - UNSTEADINESS ON FEET Status: Acute Current Visit: Yes - Problem List Review Problem List Initiated/Reviewed/Updated: Yes - Plan Plan:: #. Hyponatremia Resolved #. Acute renal failure Resolved #. Atrial fibrillation Patient has been on chronic anticoagulation Rate controlled continue current care Chronic anticoagulation with apixaban #Hypothyroidism On levothyroxin. #. Dyslipidemia Has been on statins #Generalized weakness and unsteady gait -CT brain was negative for acute findings Plan: continue ceftriaxone follow cx Anti-medic protocol PT/OT
[2017-10-02] MEDS: cefTRIAXone 1 GM Vial IVPUSH SCH (17:03)
[2017-10-03] MEDS: Sodium Chloride 0.9% 1,000 ML IV SCH (05:52)
[2017-10-03] MEDS: Levothyroxine 25 MCG Tab PO SCH (06:06)
[2017-10-03] MEDS: ADVAIR INH SCH ×2 (06:07→18:49)
[2017-10-03] MEDS ORDERED: Docusate Sodium 100 MG Cap PO PRN (09:57)
[2017-10-03] MEDS: Calcium Carbonate 500 MG Tab.Chew PO SCH (10:29)
[2017-10-03] MEDS: Metoprolol Succinate 50 MG Tab.ER PO SCH (10:30)
[2017-10-03] MEDS: CHOLECALCIFEROL PO SCH (10:31)
[2017-10-03] MEDS: CRANBERRY 450 MG PO SCH ×2 (10:32→21:49)
[2017-10-03] MEDS: PITAVASTATIN 2 MG PO SCH (10:32)
[2017-10-03] MEDS: cycloSPORINE Ophth Drops U/D Box of 30 EYEBOTH SCH ×2 (10:33→21:50)
--- NOTE | 2017-10-03 12:11 | PCM.PN ---
- General Info Date of Service: 10/03/17 Admission Dx/Problem (Free Text): Admission Diagnosis/Problem Admission Diagnosis/Problem Acute renal failure syndrome Subjective Update: The patient is an 82 year old female with medical history of hypothyroidism, chronic atrial fibrillation, hypertension, and chronic anticoagulation. The patient began to experience symptoms of urinary tract infection about 5 days ago. She was seen by her primary carepractitioner and given a prescription for nitrofurantoin. Despite using that medication she continues to have frequency or micturition generalized body malaise and weakness. The patient had urine cultures which came back suggesting that it was resistant to nitrofurantoin. Patient was started on Bactrim. Over the past 3 days has symptoms has worsened. She has been experiencing nausea. She vomited yesterday evening. Her appetite has been poor and she has not been eating well. Has not had any documented fever but experiences intermittent chills. Indicates that she has generalized body aches and feels extremely weak. She was admitted for JOE. Seen today. Reports feeling better. No new complaints. CT brain yesterday was negaiive for acute pathology. Functional Status: Reports: Pain Controlled - Review of Systems General: Reports: No Symptoms HEENT: Reports: No Symptoms Pulmonary: Reports: No Symptoms Cardiovascular: Reports: No Symptoms Gastrointestinal: Reports: No Symptoms Genitourinary: Reports: No Symptoms Musculoskeletal: Reports: No Symptoms Skin: Reports: No Symptoms Neurological: Reports: Dizziness, Weakness Psychiatric: Reports: No Symptoms - Patient Data Vitals - Most Recent: Last Vital Signs Temp 97.6 F 10/03/17 11:00 Pulse 60 10/03/17 11:00 Resp 20 10/03/17 11:00 BP 119/59 L 10/03/17 11:00 Pulse Ox 99 10/03/17 11:00 Orthostatic Blood Pressure [ 99/63 Standing] Orthostatic Blood Pressure [ 114/68 Sitting] Orthostatic Blood Pressure [ 132/70 Supine] Weight - Most Recent: 121 lb 9.6 oz I&O - Last 24 Hours: Intake & Output 10/02/17 10/03/17 10/03/17 22:59 06:59 14:59 Intake Total 220 2276 180 Output Total 1400 1600 575 Balance -1180 676 -395 Naseem Results Last 24 Hours: Microbiology 10/01/17 14:45 Urine Culture - Final Urine, Voided Escherichia Coli Med Orders - Current: Current Medications Acetaminophen (Tylenol) 650 mg PO Q4H PRN PRN Reason: Pain (Mild 1-3)/fever Acetaminophen (Tylenol Extra Strength) 1,000 mg PO Q8H PRN PRN Reason: Pain Calcium Carbonate/Glycine (Tums) 500 mg PO DAILY [facility] Last Admin: 10/03/17 10:29 Dose: 500 mg Ceftriaxone Sodium (Rocephin) 1 gm IVPUSH Q24H [facility] Last Admin: 10/02/17 17:03 Dose: 1 gm Cyclosporine (Restasis) 0 each EYEBOTH BID [facility] Last Admin: 10/03/17 10:33 Dose: 1 drop Docusate Sodium (Colace) 100 mg PO BID PRN PRN Reason: Constipation Sodium Chloride (Normal Saline) 1,000 mls @ 125 mls/hr IV ASDIRECTED [facility] Last Admin: 10/03/17 05:52 Dose: 125 mls/hr Levothyroxine Sodium (Levothyroxine) 25 mcg PO ACBREAKFAST [facility] Last Admin: 10/03/17 06:06 Dose: 25 mcg Metoprolol Succinate (Toprol Xl) 50 mg PO DAILY [facility] Last Admin: 10/03/17 10:30 Dose: 50 mg (Apixaban [Eliquis] (2.5 Mg)*Ptom*) 2.5 mg PO BID [facility] Last Admin: 10/03/17 10:32 Dose: 2.5 mg (Pitavastatin [ Livalo] 2 Mg)*Pt Own Med* 2 mg PO DAILY [facility] Last Admin: 10/03/17 10:32 Dose: 2 mg Cranberry 450mgPt (Own) 1 each PO BID [facility] Last Admin: 10/03/17 10:32 Dose: 1 each Advair Diskus 250/50 (*Pt Own Med*) 0 each INH BIDRT [facility] Last Admin: 10/03/17 06:07 Dose: 1 each Ondansetron HCl (Zofran) 4 mg IVPUSH Q6H PRN PRN Reason: Nausea/Vomiting Last Admin: 10/03/17 09:43 Dose: 4 mg Cholecalciferol 1000 (Iu Tab *Pt Own Med*) 1,000 each PO DAILY [facility] Last Admin: 10/03/17 10:31 Dose: 1,000 each Discontinued Medications Acetaminophen (Tylenol) 650 mg PO Q4H PRN PRN Reason: Pain (Mild 1-3)/fever Acetaminophen (Tylenol Extra Strength) 1,000 mg PO Q8H PRN PRN Reason: Pain Ceftriaxone Sodium (Rocephin) 1 gm IVPUSH Q24H [facility] Sodium Chloride (Normal Saline) 1,000 mls @ 999 mls/hr IV .BOLUS ONE Stop: 10/01/17 16:15 Last Admin: 10/01/17 15:31 Dose: 999 mls/hr Sodium Chloride (Normal Saline) 1,000 mls @ 125 mls/hr IV ASDIRECTED [facility] Levothyroxine Sodium (Levothyroxine) 25 mcg PO ACBREAKFAST [facility] Metoprolol Succinate (Toprol Xl) 50 mg PO DAILY [facility] Non-Formulary Medication (Apixaban [Eliquis]) 2.5 mg PO BID [facility] Non-Formulary Medication (Bupropion [Wellbutrin Sr]) 100 mg PO DAILY [facility] Non-Formulary Medication (Calcium Carbonate) 600 mg PO DAILY [facility] Non-Formulary Medication (Cholecalciferol (Vitamin D3) [Vitamin D3]) 1,000 unit PO DAILY [facility] Non-Formulary Medication (Ipratropium [Atrovent 0.03% Nasal [place]]) 1 spray NASBOTH DAILY [facility] Non-Formulary Medication (Pitavastatin [Livalo]) 2 mg PO DAILY [facility] Non-Formulary Medication (Trospium Chloride [Trospium Chloride]) 20 mg PO DAILY [facility] Non-Formulary Medication (Bupropion [Wellbutrin Sr]) 100 mg PO DAILY [facility] Non-Formulary Medication (Ipratropium [Atrovent 0.03% Nasal [place]]) 1 spray NASBOTH DAILY [facility] Non-Formulary Medication (Trospium Chloride [Trospium Chloride]) 20 mg PO DAILY [facility] Non-Formulary Medication (Nf Drug) 1 each INH BID [facility] Last Admin: 10/02/17 00:41 Dose: Not Given Ondansetron HCl (Zofran) 4 mg IV ONETIME ONE Stop: 10/01/17 15:16 Last Admin: 10/01/17 15:33 Dose: 4 mg Ondansetron HCl (Zofran) 4 mg IVPUSH Q6H PRN PRN Reason: Nausea/Vomiting - Exam Quality Assessment: DVT Prophylaxis General: Alert, Oriented HEENT: Pupils Equal, Pupils Reactive, EOMI, Mucous Membr. Moist/[place] Neck: Supple Lungs: Clear to Auscultation, Normal Respiratory Effort Cardiovascular: Regular Rate, Regular Rhythm GI/Abdominal Exam: Normal Bowel Sounds, Soft, Non-Tender, No Organomegaly, No Distention, No Abnormal Bruit, No Mass, Pelvis Stable (Female) Exam: Normal External Exam, Normal Speculum Exam, Normal Bimanual Exam Back Exam: Normal Inspection, Full Range of Motion Extremities: Normal Inspection, Normal Range of Motion, Non-Tender, No Pedal Edema, Normal Capillary Refill Skin: Warm, Dry, Intact Wound/Incisions: Healing Well Neurological: No New Focal Deficit Psy/Mental Status: Alert, Normal Affect, Normal Mood - Problem List & Annotations (1) Unsteady gait SNOMED Code(s): 10904574, [id number] Code(s): R26.81 - UNSTEADINESS ON FEET Status: Acute Current Visit: Yes - Problem List Review Problem List Initiated/Reviewed/Updated: Yes - My Orders Last 24 Hours: My Active Orders 10/03/17 09:57 Docusate Sodium [Colace] 100 mg PO BID PRN 10/04/17 05:00 BASIC METABOLIC PANEL,BMP [CHEM] DAILY CBC WITH AUTO DIFF [HEME] DAILY MAGNESIUM [CHEM] DAILY PHOSPHORUS [CHEM] DAILY 10/04/17 09:00 CULTURE URINE [RM] Routine 10/05/17 05:00 BASIC METABOLIC PANEL,BMP [CHEM] DAILY CBC WITH AUTO DIFF [HEME] DAILY MAGNESIUM [CHEM] DAILY PHOSPHORUS [CHEM] DAILY - Plan Plan:: #. Hyponatremia Resolved #. Acute renal failure Resolved #. Atrial fibrillation Patient has been on chronic anticoagulation Rate controlled continue current care Chronic anticoagulation with apixaban #Hypothyroidism On levothyroxin. #. Dyslipidemia Has been on statins #Generalized weakness and unsteady gait -CT brain was negative for acute findings Plan: continue ceftriaxone Repeat urine cx tomorrow Anti-medic protocol PT/OT
[2017-10-03] MEDS: cefTRIAXone 1 GM Vial IVPUSH SCH (18:39)
[2017-10-04] MEDS: ADVAIR INH SCH (06:45)
[2017-10-04] MEDS: Levothyroxine 25 MCG Tab PO SCH (06:45)
[2017-10-04 07:00] LABS: ANION GAP 9.9
[2017-10-04 08:14] VITALS: BP 122/54
[2017-10-04] MEDS: CRANBERRY 450 MG PO SCH (09:19)
[2017-10-04] MEDS: PITAVASTATIN 2 MG PO SCH (09:20)
[2017-10-04] MEDS: cycloSPORINE Ophth Drops U/D Box of 30 EYEBOTH SCH (09:20)
[2017-10-04] MEDS: CHOLECALCIFEROL PO SCH (09:20)
[2017-10-04] MEDS: Calcium Carbonate 500 MG Tab.Chew PO SCH (09:21)
[2017-10-04] MEDS: Metoprolol Succinate 50 MG Tab.ER PO SCH (09:21)
[2017-10-04] MEDS ORDERED: cefTRIAXone 1 GM Vial IVPUSH ONE (10:30)
[2017-10-04] MEDS ORDERED: Phosphorus #1 250 MG Tab PO SCH (10:45)
[2017-10-04] MEDS ORDERED: Levofloxacin 250 MG Tab PO SCH (11:30)
--- NOTE | 2017-10-04 11:33 | PCM.DCSUM1 ---
Discharge Summary - Hospital Course HPI Initial Comments: The patient is an 82 year old female with medical history of hypothyroidism, chronic atrial fibrillation, hypertension, and chronic anticoagulation. The patient began to experience symptoms of urinary tract infection 5 days [employer]. She was seen by her primary care practitioner and given a prescription for nitrofurantoin. Despite using that medication she continues to have frequency or micturition generalized body malaise and weakness. The patient had urine cultures which came back suggesting that it was resistant to nitrofurantoin. Patient was started on Bactrim. Over the past 3 days her symptoms worsened. She has been experiencing nausea. She vomited yesterday evening. Her appetite has been poor and she has not been eating well. Has not had any documented fever but experiences intermittent chills. Indicates that she has generalized body aches and feels extremely weak. Labs during admission revealed elevated creatinine. She was admitted for JOE and unresolved UTI. She received IV ceftriaxone and IVF. JOE resolved. She improved clinically. She ded received CT head that was negative for acute pathology. She continued to improve with PT/ OT. Today patient was seen and reports doing. Her unsteady gait has improved. She is being discharge home to continue with outpatient PT/OT. I also scheduled outpatient MRI brain. She will follow with her PCP in 5 to 7 days. Diagnosis: Stroke: No - Discharge Data Discharge Date: 10/04/17 Discharge Disposition: Home, Self-Care 01 Condition: Good - Discharge Diagnosis/Problem(s) (1) Unsteady gait SNOMED Code(s): 75251736, [id number] ICD Code: R26.81 - UNSTEADINESS ON FEET Status: Acute Current Visit: Yes - Patient Summary/Data Consults: Consultations 10/01/17 17:10 OT Evaluation and Treatment [CONS] Routine PT Evaluation and Treatment [CONS] Routine - Patient Instructions Diet: Heart Healthy Diet Activity: As Tolerated Notify Provider of: Fever, Increased Pain, Swelling and Redness, Nausea and/or Vomiting - Discharge Plan *PRESCRIPTION DRUG MONITORING PROGRAM REVIEWED*: Not Applicable *COPY OF PRESCRIPTION DRUG MONITORING REPORT IN PATIENT YESSICA: Not Applicable Prescriptions/Med Rec: Phosphorus #1 [Neutra-Phos] 250 mg PO BID 14 Days #28 tablet Home Medications: Home Meds Acetaminophen [Tylenol Extra Strength] 1,000 mg PO Q8H PRN 12/28/13 [History] Calcium Carbonate [Calcium] 600 mg PO DAILY 12/28/13 [History] Cholecalciferol (Vitamin D3) [Vitamin D3] 1,000 unit PO BID 12/28/13 [History] Metoprolol Succinate [Toprol XL] 0.5 mg PO DAILY 12/28/13 [History] Amiodarone [Cordarone] 100 mg PO DAILY 11/20/15 [History] Apixaban [Eliquis] 2.5 mg PO BID 11/20/15 [History] Fluticasone/Salmeterol [Advair Diskus 500-50] 1 puff INH BID 11/20/15 [History] azaTHIOprine [Imuran] 50 mg PO DAILY 11/20/15 [History] Alendronate Sodium 70 mg PO ASDIRECTED 10/01/17 [History] Nitrofurantoin [place]/Macrocryst [Nitrofurantoin [place]-MCR] 100 mg PO BID 10/01/17 [History] Non-Formulary Medication [NF Drug] 1,000 mcg PO DAILY 10/01/17 [History] Non-Formulary Medication [NF Drug] 450 mg PO BID 10/01/17 [History] Pitavastatin [Livalo] 2 mg PO DAILY 10/01/17 [History] buPROPion [Wellbutrin SR] 100 mg PO DAILY 10/01/17 [History] cycloSPORINE [Restasis] 2 drop EYEBOTH ASDIRECTED PRN 10/01/17 [History] Levothyroxine 25 mcg PO ACBREAKFAST 3 Days #3 10/04/17 [Rx] Phosphorus #1 [Neutra-Phos] 250 mg PO BID 14 Days #28 tablet 10/04/17 [Rx] Patient Handouts: Phosphorus Salts tablets, Urinary Tract Infection, Adult, [id number] - Discharge Summary/Plan Comment DC Time >30 min.: Yes Discharge Summary/Plan Comment: The patient is an 82 year old female with medical history of hypothyroidism, chronic atrial fibrillation, hypertension, and chronic anticoagulation. The patient began to experience symptoms of urinary tract infection 5 days [employer]. She was seen by her primary care practitioner and given a prescription for nitrofurantoin. Despite using that medication she continues to have frequency or micturition generalized body malaise and weakness. The patient had urine cultures which came back suggesting that it was resistant to nitrofurantoin. Patient was started on Bactrim. Over the past 3 days her symptoms worsened. She has been experiencing nausea. She vomited yesterday evening. Her appetite has been poor and she has not been eating well. Has not had any documented fever but experiences intermittent chills. Indicates that she has generalized body aches and feels extremely weak. Labs during admission revealed elevated creatinine. She was admitted for JOE and unresolved UTI. She received IV ceftriaxone and IVF. JOE resolved. She improved clinically. She ded received CT head that was negative for acute pathology. She continued to improve with PT/ OT. Today patient was seen and reports doing. Her unsteady gait has improved. She is being discharge home with 4 wheel walker and to continue with outpatient PT/OT. I also scheduled outpatient MRI brain. She will follow with her PCP in 5 to 7 days. - Patient Data Vitals - Most Recent: Last Vital Signs Temp 97.3 F 10/04/17 07:00 Pulse 64 10/04/17 09:21 Resp 18 10/04/17 07:00 BP 122/54 L 10/04/17 09:21 Pulse Ox 98 10/04/17 07:00 Orthostatic Blood Pressure [ 97/53 Standing] Orthostatic Blood Pressure [ 110/49 Sitting] Orthostatic Blood Pressure [ 117/49 Supine] Weight - Most Recent: 121 lb 9.6 oz I&O - Last 24 hours: Intake & Output 10/03/17 10/04/17 10/04/17 22:59 06:59 14:59 Intake Total 680 200 240 Output Total 900 1050 Balance -220 -850 240 Lab Results - Last 24 hrs: Laboratory Results - last 24 hr 10/04/17 10/04/17 Range/Units 05:45 05:45 WBC 4.5 L (5.0-10.0) 10^3/uL RBC 4.19 L (4.2-5.4) 10^6/uL Hgb 13.4 (12.0-16.0) g/dL Hct 39.9 (37.0-47.0) % MCV 95.2 (80-100) fL MCH 32.0 (27.0-34.0) pg MCHC 33.6 (33.0-35.0) g/dL Plt Count 265 (150-450) 10^3/uL Neut % (Auto) 65.9 (42.2-75.2) % Lymph % (Auto) 21.5 (20.5-50.1) % [place] % (Auto) 11.7 H (2-8) % Eos % (Auto) 0.7 L (1.0-3.0) % Baso % (Auto) 0.2 (0.0-1.0) % Add Manual Diff Yes Neutrophils % (Manual) 64 (42-75) % Band Neutrophils % 2 % Lymphocytes % (Manual) 25 (20-50) % Monocytes % (Manual) 9 H (2-8) % Sodium 139 (135-145) mmol/L Potassium 3.9 (3.6-5.0) mmol/L Chloride 111 (101-111) mmol/L Carbon Dioxide 22.0 (21.0-31.0) mmol/L Anion Gap 9.9 BUN 9 (7-18) mg/dL Creatinine 0.9 (0.6-1.3) mg/dL Est Cr Clr Drug Dosing 37.46 mL/min Estimated GFR (MDRD) 60 Glucose 76 (74-105) mg/dL Calcium 8.5 (8.4-10.2) mg/dl Phosphorus 2.0 L (2.5-4.6) mg/dL Magnesium 2.1 (1.8-2.5) mg/dL MATT Results - Last 24 hrs: Microbiology 10/01/17 14:45 Urine Culture - Final Urine, Voided Escherichia Coli Med Orders - Current: Current Medications Acetaminophen (Tylenol Extra Strength) 1,000 mg PO Q8H PRN PRN Reason: Pain Calcium Carbonate/Glycine (Tums) 500 mg PO DAILY [facility] Last Admin: 10/04/17 09:21 Dose: 500 mg Ceftriaxone Sodium (Rocephin) 1 gm IVPUSH Q24H [facility] Last Admin: 10/03/17 18:39 Dose: 1 gm Cyclosporine (Restasis) 0 each EYEBOTH BID [facility] Last Admin: 10/04/17 09:20 Dose: 1 drop Docusate Sodium (Colace) 100 mg PO BID PRN PRN Reason: Constipation Levofloxacin (Levaquin) 250 mg PO Q24H [facility] Levothyroxine Sodium (Levothyroxine) 25 mcg PO ACBREAKFAST [facility] Last Admin: 10/04/17 06:45 Dose: 25 mcg Metoprolol Succinate (Toprol Xl) 50 mg PO DAILY [facility] Last Admin: 10/04/17 09:21 Dose: 50 mg (Apixaban [Eliquis] (2.5 Mg)*Ptom*) 2.5 mg PO BID [facility] Last Admin: 10/04/17 09:19 Dose: 2.5 mg (Pitavastatin [ Livalo] 2 Mg)*Pt Own Med* 2 mg PO DAILY [facility] Last Admin: 10/04/17 09:20 Dose: 2 mg Cranberry 450mgPt (Own) 1 each PO BID [facility] Last Admin: 10/04/17 09:19 Dose: 1 each Advair Diskus 250/50 (*Pt Own Med*) 0 each INH BIDRT [facility] Last Admin: 10/04/17 06:45 Dose: 1 each Ondansetron HCl (Zofran) 4 mg IVPUSH Q6H PRN PRN Reason: Nausea/Vomiting Last Admin: 10/03/17 09:43 Dose: 4 mg Cholecalciferol 1000 (Iu Tab *Pt Own Med*) 1,000 each PO DAILY [facility] Last Admin: 10/04/17 09:20 Dose: 1,000 each Sodium Phosphate (Neutra-Phos) 250 mg PO BID [facility] Last Admin: 10/04/17 11:21 Dose: 250 mg Discontinued Medications Acetaminophen (Tylenol) 650 mg PO Q4H PRN PRN Reason: Pain (Mild 1-3)/fever Acetaminophen (Tylenol Extra Strength) 1,000 mg PO Q8H PRN PRN Reason: Pain Acetaminophen (Tylenol) 650 mg PO Q4H PRN PRN Reason: Pain (Mild 1-3)/fever Ceftriaxone Sodium (Rocephin) 1 gm IVPUSH Q24H [facility] Ceftriaxone Sodium (Rocephin) 1 gm IVPUSH ONETIME ONE Stop: 10/04/17 10:31 Last Admin: 10/04/17 11:21 Dose: 1 gm Sodium Chloride (Normal Saline) 1,000 mls @ 999 mls/hr IV .BOLUS ONE Stop: 10/01/17 16:15 Last Admin: 10/01/17 15:31 Dose: 999 mls/hr Sodium Chloride (Normal Saline) 1,000 mls @ 125 mls/hr IV ASDIRECTED [facility] Sodium Chloride (Normal Saline) 1,000 mls @ 125 mls/hr IV ASDIRECTED [facility] Last Infusion: 08/24/18 15:45 Dose: 125 mls/hr Levothyroxine Sodium (Levothyroxine) 25 mcg PO ACBREAKFAST [facility] Metoprolol Succinate (Toprol Xl) 50 mg PO DAILY [facility] Non-Formulary Medication (Apixaban [Eliquis]) 2.5 mg PO BID [facility] Non-Formulary Medication (Bupropion [Wellbutrin Sr]) 100 mg PO DAILY [facility] Non-Formulary Medication (Calcium Carbonate) 600 mg PO DAILY [facility] Non-Formulary Medication (Cholecalciferol (Vitamin D3) [Vitamin D3]) 1,000 unit PO DAILY [facility] Non-Formulary Medication (Ipratropium [Atrovent 0.03% Nasal [place]]) 1 spray NASBOTH DAILY [facility] Non-Formulary Medication (Pitavastatin [Livalo]) 2 mg PO DAILY [facility] Non-Formulary Medication (Trospium Chloride [Trospium Chloride]) 20 mg PO DAILY [facility] Non-Formulary Medication (Bupropion [Wellbutrin Sr]) 100 mg PO DAILY [facility] Non-Formulary Medication (Ipratropium [Atrovent 0.03% Nasal [place]]) 1 spray NASBOTH DAILY [facility] Non-Formulary Medication (Trospium Chloride [Trospium Chloride]) 20 mg PO DAILY [facility] Non-Formulary Medication (Nf Drug) 1 each INH BID [facility] Last Admin: 10/02/17 00:41 Dose: Not Given Ondansetron HCl (Zofran) 4 mg IV ONETIME ONE Stop: 10/01/17 15:16 Last Admin: 10/01/17 15:33 Dose: 4 mg Ondansetron HCl (Zofran) 4 mg IVPUSH Q6H PRN PRN Reason: Nausea/Vomiting
== END 2017-10-04 13:42 | disposition home or self-care (01) | DRG 683 ==
LOC: DL.ED 14:11 → DL.MS 17:10
PROVIDERS: ADMIT Hospitalist; ATTEND Hospitalist
DX: N17.9 Acute kidney failure, unspecified (principal); N39.0 Urinary tract infection, site not specified; E87.1 Hypo-osmolality and hyponatremia; I48.91 Unspecified atrial fibrillation; R32 Unspecified urinary incontinence; E03.9 Hypothyroidism, unspecified; I48.2 Chronic atrial fibrillation; B96.20 Unspecified Escherichia coli [E. coli] as the cause of diseases classified elsewhere; T37.0X5A Adverse effect of sulfonamides, initial encounter; I10 Essential (primary) hypertension; M79.7 Fibromyalgia; E78.00 Pure hypercholesterolemia, unspecified; H54.7 Unspecified visual loss; F32.9 Major depressive disorder, single episode, unspecified; H91.90 Unspecified hearing loss, unspecified ear; I77.6 Arteritis, unspecified; R26.81 Unsteadiness on feet; Z88.0 Allergy status to penicillin; Z79.01 Long term (current) use of anticoagulants; Z88.8 Allergy status to other drugs, medicaments and biological substances; Z79.899 Other long term (current) drug therapy
CPT/HCPCS: 36415; 70450; 80048; 80053; 81001; 83735; 84100; 84484; 85025; 87086; 87088; 87186; 96361; 96374; 97112-GP; 97162-GP; 97165-GO; 97530-GO; 99284; A9270-GY; J0696; J2405; J7030

== ENCOUNTER 2019-09-26 19:58 | Emergency (ER) | payer MEDICARE, OTHER ==
[2019-09-26] MEDS ORDERED: Acetaminophen/HYDROcodone 325-10 MG Tab PO ONE (19:59)
[2019-09-26] MEDS ORDERED: Clindamycin Phosphate 900 MG in Sodium Chloride 0.9% 100 ML IV ONE (20:03)
--- NOTE | 2019-09-26 20:06 | EDM.PDOC ---
ED HPI GENERAL MEDICAL PROBLEM - General Stated Complaint: BACK TOP TOOTH HURTING Time Seen by Provider: 09/26/19 20:04 Source of Information: Reports: Patient, Family History Limitations: Reports: No Limitations - History of Present Illness INITIAL COMMENTS - FREE TEXT/NARRATIVE: daughter states mother is taking PO clindamycin 300mg and told by DDS injection will work faster and mother can tolerate mycin fine. Left Tooth/Teeth Pain Score (Numeric/FACES): 8 - Related Data Allergies Allergy/AdvReac Type Severity Reaction Status Date / Time ciprofloxacin Allergy Intermediate Muscle Verified 10/01/17 17:36 Aches Penicillins Allergy Intermediate Rash Verified 10/01/17 17:36 atorvastatin [From Lipitor] Allergy Muscle Verified 10/01/17 17:36 Aches erythromycin base Allergy Other Verified 10/01/17 17:36 [Erythromycin Base] levofloxacin [From Levaquin] Allergy Indigestion Verified 10/01/17 17:36 dexasporin Allergy Other Uncoded 10/01/17 14:16 Home Meds: Home Meds Acetaminophen [Tylenol Extra Strength] 1,000 mg PO Q8H PRN 12/28/13 [History] Calcium Carbonate [Calcium] 600 mg PO DAILY 12/28/13 [History] Cholecalciferol (Vitamin D3) [Vitamin D3] 1,000 unit PO BID 12/28/13 [History] Metoprolol Succinate [Toprol XL] 0.5 mg PO DAILY 12/28/13 [History] Amiodarone [Cordarone] 100 mg PO DAILY 11/20/15 [History] Apixaban [Eliquis] 2.5 mg PO BID 11/20/15 [History] Fluticasone/Salmeterol [Advair Diskus 500-50] 1 puff INH BID 11/20/15 [History] azaTHIOprine [Imuran] 50 mg PO DAILY 11/20/15 [History] Alendronate Sodium 70 mg PO ASDIRECTED 10/01/17 [History] Nitrofurantoin [place]/Macrocryst [Nitrofurantoin [place]-MCR] 100 mg PO BID 10/01/17 [History] Non-Formulary Medication [NF Drug] 1,000 mcg PO DAILY 10/01/17 [History] Non-Formulary Medication [NF Drug] 450 mg PO BID 10/01/17 [History] Pitavastatin [Livalo] 2 mg PO DAILY 10/01/17 [History] buPROPion [Wellbutrin SR] 100 mg PO DAILY 10/01/17 [History] cycloSPORINE [Restasis] 2 drop EYEBOTH ASDIRECTED PRN 10/01/17 [History] Levothyroxine 25 mcg PO ACBREAKFAST 3 Days #3 10/04/17 [Rx] Phosphorus #1 [Neutra-Phos] 250 mg PO BID 14 Days #28 tablet 10/04/17 [Rx] Past Medical History HEENT History: Reports: Impaired Vision, Other (See Below) Other HEENT History: CERUMEN IMPACTION Cardiovascular History: Reports: Afib, High Cholesterol Respiratory History: Reports: COPD, Other (See Below) Other Respiratory History: vasculitis Gastrointestinal History: Reports: Diverticulosis Genitourinary History: Reports: Urinary Incontinence, UTI, Recurrent, Other (See Below) Other Genitourinary History: 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 OF THE BREASTS [employer] History: Reports: Musculoskeletal History: Reports: Fibromyalgia, Osteoporosis, Other (See Below) Other Musculoskeletal History: TROCHANTERIC BURSITIS Neurological History: Reports: Other (See Below) Other Neuro History: INSOMNIA Psychiatric History: Reports: Depression Endocrine/Metabolic History: Reports: Hypothyroidism, Other (See Below) Other Endocrine/Metabolic History: ELEVATED TSH Hematologic History: Reports: Other (See Below) Other Hematologic History: VASCULITIS Immunologic History: Reports: None Other Immunologic History: VASCULITIS Oncologic (Cancer) History: Reports: None Dermatologic History: Reports: Other (See Below) Other Dermatologic History: ACTINIC DERMATITIS; 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 - Infectious Disease History Infectious Disease History: Reports: Other (See Below) Other Infectious Disease History: UNCERTAIN OF WHAT SHE MAY HAVE HAD DURING CHILDHOOD - Past Surgical History Head Surgeries/Procedures: Reports: None Respiratory Surgical History: Reports: None GI Surgical History: Reports: Appendectomy, Colonoscopy Oncologic Surgical History: Reports: None Social & Family History - Family History Family Medical History: Noncontributory - Caffeine Use Caffeine Use: Reports: Coffee Other Caffeine Use: OCCASIONAL ED ROS ENT - Review of Systems Review Of Systems: Comprehensive ROS is negative, except as noted in HPI. ED EXAM, ENT - Physical Exam Exam: See Below Exam Limited By: No Limitations General Appearance: Alert, WD/WN, Mild Distress, Other (discomfort) Ears: Hearing Grossly Normal Mouth/Throat: Dental Pain, Dental Tenderness Head: Atraumatic Neck: Non-Tender, Full Range of Motion Respiratory/Chest: No Respiratory Distress Cardiovascular: Regular Rate, Rhythm GI/Abdominal: Soft, Non-Tender Neurological: Alert, Oriented, Normal Cognition, Normal Gait, No Motor/Sensory Deficits Psychiatric: Normal Affect, Normal Mood Skin: Warm, Dry, Normal Color Lymphatic: No Adenopathy Course - Vital Signs Last Recorded V/S: Last Vital Signs Temp 35.8 C L 09/26/19 20:16 Pulse 85 09/26/19 20:16 Resp 18 09/26/19 20:16 BP 114/98 H 09/26/19 20:16 Pulse Ox 96 09/26/19 20:16 - Orders/Labs/Meds Meds: Medications Discontinued Medications Generic Name Dose Route Start Last Admin Trade Name [place] PRN Reason Stop Dose Admin Hydrocodone Bitart/Acetaminophen Confirm 09/26/19 20:36 09/26/19 20:39 [place] 325-10 Mg Administered 09/26/19 20:37 Not Given Dose 1 tab .ROUTE .STK-MED ONE Clindamycin Phosphate 900 mg/ 106 mls @ 200 mls/hr 09/26/19 20:03 09/26/19 20:09 Sodium Chloride IV 09/26/19 20:34 200 mls/hr ONETIME ONE Administration Departure - Departure Time of Disposition: 20:50 Disposition: Home, Self-Care 01 Condition: Good Clinical Impression: Dental abscess - Discharge Information Forms: ED Department Discharge Additional Instructions: 1) follow up with dentist tomorrow rx [place]; norco 10 x 1 Sepsis Event Note (ED) - Focused Exam Vital Signs: Vital Signs Temp Pulse Resp BP Pulse Ox 09/26/19 20:16 35.8 C L 85 18 114/98 H 96
[2019-09-26 20:20] VITALS: BP 114/98; PULSE 85
[2019-09-26] MEDS ORDERED: Acetaminophen/HYDROcodone 325-10 MG Tab ONE (20:36)
== END 2019-09-26 20:51 | disposition home or self-care (01) ==
LOC: DL.ED 19:58
DX: K04.7 Periapical abscess without sinus (principal); I48.91 Unspecified atrial fibrillation; E78.00 Pure hypercholesterolemia, unspecified; J44.9 Chronic obstructive pulmonary disease, unspecified; F32.9 Major depressive disorder, single episode, unspecified; Z88.0 Allergy status to penicillin; Z88.1 Allergy status to other antibiotic agents; Z88.8 Allergy status to other drugs, medicaments and biological substances; Z79.01 Long term (current) use of anticoagulants; Z79.899 Other long term (current) drug therapy
CPT/HCPCS: 96365; 99282; A9270; J3490; J7050

== ENCOUNTER 2022-09-09 07:27 | Day surgery (SDC) | payer MEDICARE, OTHER ==
[2022-09-09] MEDS ORDERED: fentaNYL 100 MCG/2 ML SDV IV ONE ×4 (07:28→08:35)
[2022-09-09] MEDS ORDERED: Midazolam 1 MG/ML 2 ML SDV IV ONE ×2 (07:28→08:32)
[2022-09-09] MEDS ORDERED: Dextrose 5%-0.45% NaCl 1,000 ML IV SCH (08:00)
[2022-09-09] MEDS ORDERED: fentaNYL 100 MCG/2 ML SDV ONE (08:26)
[2022-09-09] MEDS ORDERED: Midazolam 1 MG/ML 2 ML SDV ONE (08:26)
[2022-09-09 10:04] VITALS: BP 134/56; PULSE 59
== END 2022-09-09 10:57 | disposition home or self-care (01) ==
LOC: DL.ENDO 07:27
PROVIDERS: ATTEND Internal Medicine Gastroenterology
DX: K21.9 Gastro-esophageal reflux disease without esophagitis (principal); K29.50 Unspecified chronic gastritis without bleeding; N39.0 Urinary tract infection, site not specified; I77.6 Arteritis, unspecified; I48.0 Paroxysmal atrial fibrillation; N18.9 Chronic kidney disease, unspecified; Z79.899 Other long term (current) drug therapy
CPT/HCPCS: 87077; 88305; 88342; J2250; J3010; J7042